=== PATIENT | male | born 1990 | race Caucasian/White ===

== ENCOUNTER 2019-12-07 09:49 | Outpatient (CLI) | payer OTHER, SELFPAY ==
[2019-12-07 17:40] LABS: Basophils Absolute Auto 0.1 K/mm3 (0.0-0.1); Basophils Percent Auto 1.5 % (0.2-1.2); Eosinophils Absolute Auto 0.3 K/mm3 (0-0.3); Eosinophils Percent Auto 6.1 % (0-4.4); Hematocrit 45.5 % (42.0-52.0); Hemoglobin 14.7 g/dL (14.0-18.0); Immature Granulocyte Absolute 0.01 K/mm3 (0.00-0.031); Immature Granulocyte Percent A 0.2 % (0-0.5); Lymphocytes Absolute Auto 1.71 K/mm3 (0.9-3.2); Lymphocytes Percent Auto 41.9 % (18.3-44.2); Mean Corpuscular HGB Conc 32.3 g/dl (32-36); Mean Corpuscular Hemoglobin 31.2 pg (26-34); Mean Corpuscular Volume 96.6 fl (80-100); Mean Platelet Volume 11.1 fl (7.4-10.4); Monocytes Absolute Auto 0.3 K/mm3 (0.1-0.6); Monocytes Percent Auto 8.3 % (2.6-8.5); Neutrophils Absolute Auto 1.7 K/mm3 (1.3-6.7); Platelet Count Result 231 k/mm3 (150-375); Red Blood Count 4.71 M/mm3 (4.6-6.20); Red Cell Distribution Width 12.4 % (11.5-14.5); White Blood Count 4.1 K/mm3 (4.5-10.0)
[2019-12-07 17:40] LABS: Add Urine Microscopic? NO; Appearance Urine Clear (Clear); Bilirubin Urine Negative (Negative); Blood Urine Negative (Negative); Color Urine Straw (Yellow); Glucose Urine UA Negative (Negative); Ketones Urine Negative (Negative); Leukocyte Esterase Ur Negative LEU/UL (Negative); Nitrate Urine Negative (Negative); Protein Urine Negative (Negative); Specific Grav Ur 1.008 (1.001-1.035); Urobilinogen Urine Negative mg/dL (<2.0)
[2019-12-07 17:47] LABS: Alanine Aminotransferase 39 U/L (4-50); Albumin Level 4.8 g/dL (3.5-5.1); Alkaline Phosphatase 48 U/L (38-126); Amylase 96 U/L (30-110); Aspartate Amino Transferase 27 U/L (17-59); Bilirubin,Total 0.5 mg/dL (0.2-1.3); Blood Urea Nitrogen 15 mg/dL (9-20); CRP < 0.5 mg/dL (<1.0); Calcium 9.9 mg/dL (8.4-10.2); Carbon Dioxide 29 mmol/L (22-30); Chloride 97 mmol/L (98-107); Estimated Glomerular Filt Rate > 60; Glucose 102 mg/dL (75-110); Lipase 102 U/L (23-300); Potassium 4.5 mmol/L (3.4-5.0); Sodium 136 mmol/L (137-145)
== END 2019-12-07 09:50 | disposition home or self-care (01) ==
PROVIDERS: PCP Family Medicine; Visit Provider Family Medicine
DX: R10.9 Unspecified abdominal pain (principal); Z79.899 Other long term (current) drug therapy
CPT/HCPCS: 36415; 80053; 81003; 82150; 83690; 85025; 86140

== ENCOUNTER 2019-12-28 01:45 | Day surgery (SDC) | payer OTHER, SELFPAY ==
[2019-12-21 15:25] VITALS: BMI 22.0
[2019-12-28 09:05] VITALS: BP 94/60; PULSE 69; RESP 16; TEMP 36.7; O2SAT 100
[2019-12-28] MEDS: LACTATED RINGERS 1,000 ML 150 ML IV CONT (09:13)
--- NOTE | 2019-12-28 09:20 | WPDANESEPPF ---
Anes - Initial Pre Proc Eval Procedure: Operation Date: 12/28/19 10:00 Proposed Procedures p Colonoscopy - Sacha Bagley MD Date/Time: 12/28/19 09:20 Surgeon: Sacha Bagley MD Pre Op Diagnosis: Constipation, rectal pain Patient Data Age: 29 Gender: M Height: 6 ft 3 in Weight: 76.8 kg Last Vital Signs Temp 36.7 C 12/28/19 09:05 Pulse 69 12/28/19 09:05 Resp 16 12/28/19 09:05 BP 94/60 L 12/28/19 09:05 Pulse Ox 100 12/28/19 09:05 Allergies Allergy/AdvReac Type Severity Reaction Status Date / Time morphine Allergy Unknown Swelling Verified 12/28/19 09:09 Home Medications Medication Instructions Recorded Confirmed Type valacyclovir 1 gram tablet 1,000 mg PO DAILY 12/01/19 12/21/19 History metoprolol tartrate 25 mg tablet 25 mg PO TID #270 tablet 12/03/19 12/28/19 Rx cholecalciferol (vitamin D3) 4,000 unit PO DAILY 12/21/19 12/21/19 History [Vitamin D3] Patient hx anesthesia problems: none Family hx anesthesia problems: none PMFSH Family History Family History Mother Family history of gastrointestinal disorder Diabetes mellitus Family history of malignant neoplasm of breast in first degree relative Father Family history of renal cell carcinoma Family history of malignant neoplasm of kidney Grandparent Diabetes mellitus Hypertension Family history of cardiovascular disease Family history of dementia Social History Social History Smoking status: Never smoker Second hand tobacco smoke exposure: No Alcohol intake: current Substance use type: marijuana Gender identity (if verbalized by the patient): Male Anes - Eval Final PreProcedure Day of Procedure 12/28/19 09:20 Patient weight: normal Heart: regular rate and rhythm Lungs: clear to auscultation Airway: Mallampati scale class 1 Neurological: alert and oriented Last oral intake: >/= 8 hours Emergent: no Anesthetic plan: proceed Anesthesia type and monitoring: general GIVS and standard monitoring Informed Consent: The patient's anesthetic plan and its attendant risks and benefits were discussed with the patient/family/POA. Questions were solicited and answers provided to the satisfaction of the patient/family/POA.
--- NOTE | 2019-12-28 09:25 | WPDGICN ---
Assessment and Plan Additional Plan This is a 29-year-old white male patient seen in evaluation at the request of Dr. Meyers. Patient complains of lower abdominal discomfort associated with constipation. The symptoms in room present for some 1-2 months. Patient has difficulty localizing the discomfort. He room reports a constant suprapubic discomfort. Other abdominal pains have been noted as well. Pain is not related to his diet. Is not related to bowel movements. Patient denies a fever E denies any bleeding. He has noted a change in the caliber of his bowel movements. Recent history is significant for constipation. His weight has remained stable. Family history is significant mother had Crohn's disease. Grandfather had colon cancer. Current medications include metoprolol, valacyclovir, and vitamin D3. No stated drug allergies. Social history is significant for occasional alcohol use. Physical exam reveals Vital Signs to be stable HEENT exam unremarkable. Lungs are clear to auscultation and percussion. Heart is without murmur or extra sounds. Abdominal exam bowel sounds are present soft nontender with no organomegaly. Digital external rectal exam normal. Labs reveal CMP, CBC, UA all within normal limits. Impression 1. Constipation. 2. Change in bowel habits. 3. Abdominal pain. 4. Rectal bleeding. 5. Family history Crohn's disease. Plan is for a trial of Metamucil, Colace, colonoscopy will be performed to assess is complaints. GI Consult Note Consult date/time: 12/28/19 09:25 HPI: David Manzanares is a 29 year old male [facility] Family History Family History Mother Family history of gastrointestinal disorder Diabetes mellitus Family history of malignant neoplasm of breast in first degree relative Father Family history of renal cell carcinoma Family history of malignant neoplasm of kidney Grandparent Diabetes mellitus Hypertension Family history of cardiovascular disease Family history of dementia Social History Social History Smoking status: Never smoker Second hand tobacco smoke exposure: No Alcohol intake: current Substance use type: marijuana Gender identity (if verbalized by the patient): Male Meds Home Medications and Allergies Home Medications Medication Instructions Recorded Confirmed Type valacyclovir 1 gram tablet 1,000 mg PO DAILY 12/01/19 12/21/19 History metoprolol tartrate 25 mg tablet 25 mg PO TID #270 tablet 12/03/19 12/28/19 Rx cholecalciferol (vitamin D3) 4,000 unit PO DAILY 12/21/19 12/21/19 History [Vitamin D3] Allergies Allergy/AdvReac Type Severity Reaction Status Date / Time morphine Allergy Unknown Swelling Verified 12/28/19 09:09 Vital Signs Vital Signs - 24 hr 12/28/19 09:05 Temperature 36.7 C Pulse Rate 69 Respiratory Rate 16 Blood Pressure 94/60 L Pulse Oximetry 100
[2019-12-28 10:10] VITALS: BP 91/57; PULSE 54; RESP 23; O2SAT 98
[2019-12-28 10:20] VITALS: BP 82/48; PULSE 88; RESP 25; O2SAT 100
[2019-12-28 10:30] VITALS: BP 99/46; PULSE 87; RESP 23; O2SAT 99
== END 2019-12-28 10:46 | disposition home or self-care (01) ==
PROVIDERS: PCP Family Medicine; Visit Provider Internal Medicine Gastroenterology
PROC: 0DJD8ZZ Inspection of Lower Intestinal Tract, Via Natural or Artificial Opening Endoscopic (ICD-10-PCS; CPT 45378; principal; 2019-12-28 10:00)
DX: K62.5 Hemorrhage of anus and rectum (principal); K64.8 Other hemorrhoids; K59.00 Constipation, unspecified; R10.84 Generalized abdominal pain; F12.90 Cannabis use, unspecified, uncomplicated
CPT/HCPCS: 45378; J2704; J7120